=== PATIENT | male | born 1950 | race Caucasian/White ===

== ENCOUNTER 2018-05-27 23:02 | Emergency (ER) | payer BC, MEDICARE ==
[2018-05-28] MEDS ORDERED: PENICILLIN G BENZATHINE 1.2 MILLION UNIT/2 ML DISP.SYRIN IM ONE (04:51)
--- NOTE | 2018-05-28 04:53 | ER Document Report ---
ED General - General Chief Complaint: Sore Throat Stated Complaint: SORE THROAT,COUGH Time Seen by Provider: 05/28/18 04:42 Notes: Patient is a pleasant 67-year-old male who presents with complaints of sore throat. He has a history of strep pharyngitis says this feels similar. Actually started several days ago. For last few days has been taking some leftover amoxicillin. 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 He does not have any chest pain. He does have any other symptoms that he had when he had previous streptococcal pericarditis but he wants to try to avoid getting that again. No vomiting. Very mild minimal cough. No other complaints at this time. TRAVEL OUTSIDE OF THE [place] IN LAST 30 DAYS: No - Related Data Allergies/Adverse Reactions: hydrocodone bitartrate [From Vicodin] Adverse Reaction (Verified 07/31/14 17:06) Past Medical History - Social History Smoking Status: Never Smoker Chew tobacco use (# tins/day): No Frequency of alcohol use: None Drug Abuse: None Family History: Reviewed & Not Pertinent Patient has suicidal ideation: No Patient has homicidal ideation: No - Past Medical History Cardiac Medical History: Reports: Hx Hypercholesterolemia, Hx Hypertension Pulmonary Medical History: Reports: Hx Pneumonia Renal/ Medical History: Denies: Hx Peritoneal Dialysis Past Surgical History: Reports: Hx Abdominal Surgery - hernias, Hx Inguinal Hernia, Hx Umbilical Hernia - Immunizations Hx Diphtheria, Pertussis, Tetanus Vaccination: Yes Review of Systems - Review of Systems Notes: My Normal Review Basic REVIEW OF SYSTEMS: CONSTITUTIONAL : Fever EENT: Sore throat CARDIOVASCULAR: Denies chest pain. RESPIRATORY: mild cough. Denies shortness of breath, difficulty breathing, or wheezing. GASTROINTESTINAL: Denies abdominal pain. Denies nausea, vomiting, or diarrhea. MUSCULOSKELETAL: Denies neck or back pain or joint pain or swelling. SKIN: Denies rash or skin lesions. NEUROLOGICAL: Denies altered mental status or loss of consciousness. Denies headache. Denies weakness or paralysis or loss of use of either side. Denies problems with gait or speech. Denies sensory or motor loss. ALL OTHER SYSTEMS REVIEWED AND NEGATIVE. Physical Exam - Vital signs Vitals: Temp Pulse Resp BP Pulse Ox 98.7 F 98 20 150/87 H 92 05/27/18 23:11 05/27/18 23:11 05/27/18 23:11 05/27/18 23:11 05/27/18 23:11 - Notes Notes: General Appearance: Well nourished, alert, cooperative, no acute distress, mild obvious discomfort. Vitals: reviewed, See vital signs table. Head: no swelling or tenderness to the head Eyes: PERRL, EOMI, Conjuctiva clear Mouth: No decreasd moisture Throat: Small tonsillar enlargement and erythema in the pharynx. No exudates. No peritonsillar space swelling. Uvula is midline. Neck: Supple, no neck tenderness, No swelling Lungs: No wheezing, No rales, No rhonci, No accessory muscle use, good air exchange bilaterally. Heart: Normal rate, Regular rythm, No murmur, no rub Skin: warm, dry, appropriate color, no rash Neuro: speech clear, oriented x 3, normal affect, responds appropriately to questions. Course - Re-evaluation Re-evalutation: 05/28/18 08:23 Patient is well-appearing on exam he does have some erythema to the pharynx. His erythema is not overwhelming however he has been treating himself with amoxicillin for last 2 days which probably has improved some of the appearance of his pharynx. Strep swab was negative however rapid strep is or not 100% sensitive and it is likely that this could be negative also because her been treating himself somewhat some leftover amoxicillin at home. Patient has a history of recurrent strep pharyngitis and also has a history of streptococcal pericarditis I feel that is appropriate to treat him with IM penicillin. Patient is agreeable to this. Patient otherwise looks well and has no further concerns at this time. Is not any symptoms of pericarditis at this time. Patient encouraged to return to ER if he has chest pain, difficulty breathing, worsening throat pain, difficulty breathing, or difficulty swallowing. Patient agrees with plan and will be discharged home. Dictation of this chart was performed using voice recognition software; therefore, there may be some unintended grammatical errors. - Vital Signs Vital signs: Temp Pulse Resp BP Pulse Ox 98.2 F 95 20 153/88 H 93 05/28/18 05:02 05/28/18 05:02 05/28/18 05:02 05/28/18 05:02 05/28/18 05:02 Discharge - Discharge Clinical Impression: Pharyngitis Qualifiers: Pharyngitis/tonsillitis etiology: unspecified etiology Qualified Code(s): J02.9 - Acute pharyngitis, unspecified Condition: Good Disposition: HOME, SELF-CARE Additional Instructions: He did not have to take any further antibiotics after the shot of penicillin receiving tonight. Please follow-up with your doctor in 3-4 days for reevaluation. Please return to ER for fevers, any chest pain, worsening sore throat, throat swelling, or feel unwell. Sometimes people with strep throat will go on to develop something called a peritonsillar abscess. This will be swelling above your tonsil causing the uvula (hangy ball in the back of your throat) to shift to one side of your throat. If you develop these symptoms you must return to the ER immediately as this requires a different kind of treatment. Also please return to the ER immediately for difficulty breathing, difficulty swallowing, or if you have any further concerns that you are worsening. Referrals: DEEPTI PENA FNP [Primary Care Provider] - Follow up in 3-5 days
[2018-05-28 05:09] VITALS: BP 153/88
== END 2018-05-28 05:09 | disposition home or self-care (01) ==
LOC: ER 23:02
DX: J02.9 Acute pharyngitis, unspecified (principal); R05 Cough; R50.9 Fever, unspecified; I10 Essential (primary) hypertension; J35.1 Hypertrophy of tonsils
CPT/HCPCS: 99282; 87070; 87880; J0561

== ENCOUNTER → 2018-06-15 | Outpatient (CLI) | payer MEDICARE, OTHER ==
--- NOTE | 2018-06-15 10:28 | RADIOLOGY REPORT (SQ) ---
EXAM DESCRIPTION: CHEST PA/LATERAL COMPLETED DATE/TIME: 06/15/2018 9:51 am REASON FOR STUDY: COUGH FOR 2 WEEKS COMPARISON: 07/31/2014 EXAM PARAMETERS: NUMBER OF VIEWS: two views TECHNIQUE: Digital Frontal and Lateral radiographic views of the chest acquired. RADIATION DOSE: NA LIMITATIONS: none FINDINGS: LUNGS AND PLEURA: No focal consolidation, pleural effusion or pneumothorax. MEDIASTINUM AND HILAR STRUCTURES: Stable. No discrete mass. HEART AND VASCULAR STRUCTURES: Enlarged cardiomediastinal silhouette, stable. Evidence of failure. BONES: No acute findings. HARDWARE: None in the chest. OTHER: No other significant finding. IMPRESSION: No evidence of focal airspace disease or other acute cardiopulmonary process. TECHNICAL DOCUMENTATION: JOB ID: [id number] [employer]- All Rights Reserved Reading location - IP/workstation name: [email or web address]
== END ==
LOC: OD 09:34
PROVIDERS: ATTEND Internal Medicine
DX: R05 Cough (principal)
CPT/HCPCS: 71046

== ENCOUNTER 2019-04-19 05:43 | Emergency (ER) | payer MEDICARE, OTHER ==
[2019-04-19 08:23] LABS: ABSOLUTE BASOPHILS # (AUTO) 0.1 10^3/uL (0.0-0.2); ABSOLUTE EOSINOPHILS # (AUTO) 0.4 10^3/uL (0.0-0.6); ABSOLUTE LYMPHOCYTES (AUTO) 2.1 10^3/uL (0.5-4.7); ABSOLUTE MONOCYTES (AUTO) 0.7 10^3/uL (0.1-1.4); ABSOLUTE NEUT (AUTO) 5.1 10^3/uL (1.7-8.2); BASOPHILS % (AUTO) 1.2 % (0-2); EOSINOPHILS % (AUTO) 4.2 % (0-6); HEMATOCRIT 45.1 % (37.9-51.0); HEMOGLOBIN 15.1 g/dL (13.5-17.0); LYMPHOCYTES % (AUTO) 24.7 % (13-45); MEAN CORPUSCULAR HEMOGLOBIN 32.8 pg (27.0-33.4); MEAN CORPUSCULAR HGB CONC 33.6 g/dL (32.0-36.0); MEAN CORPUSCULAR VOLUME 98 fl (80-97); MONOCYTES % (AUTO) 8.6 % (3-13); PLATELET COUNT 276 10^3/uL (150-450); RED BLOOD COUNT 4.62 10^6/uL (4.35-5.55); RED CELL DISTRIBUTION WIDTH 13.1 % (11.5-14.0); SEGMENTED NEUTROPHILS % (AUTO) 61.3 % (42-78); TOTAL CELLS COUNTED % (AUTO) 100 %; WHITE BLOOD COUNT 8.4 10^3/uL (4.0-10.5)
--- NOTE | 2019-04-19 08:32 | ER Document Report ---
ED General - General Chief Complaint: High Blood Pressure Stated Complaint: BLOOD PRESSURE ISSUES Time Seen by Provider: 04/19/19 08:11 Primary Care Provider: KACY REYNOLDS MD [Primary Care Provider] - Follow up as needed TRAVEL OUTSIDE OF THE [place] IN LAST 30 DAYS: No - HPI Notes: Patient is a 68-year-old male with a history of hypertension who had relatively unremarkable cardiac cath performed a month ago (aside from 20% blockage) who presents complaining of having high blood pressure over the past month that has reached triple over triple. He had some general weakness and feeling of light- headedness this morning. Patient states that he was started on a beta-xavier around that time and his dose was doubled because of his continued elevated blood pressure. Patient states that he feels a little weak when he BP is elevated, but currently is feeling much better. He is able to eat and drink without difficulty. He is urinating normally and having normal bowel movements. 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 Denies any headache, fever, neck pain, changes in vision/speech/mentation/hearing, URI, sore throat, chest pain, palpitations, syncope, cough, shortness of breath, wheeze, dyspnea, abdominal pain, nausea/vomiting/diarrhea, urinary retention, dysuria, hematuria, loss of control of bowel or bladder, numbness/tingling, saddle anesthesia, muscle paralysis/weakness, or rash. - Related Data Allergies/Adverse Reactions: hydrocodone bitartrate [From Vicodin] Adverse Reaction (Verified 04/19/19 09:13) Home Medications: KCL 20 mEq qday. [id number] mg bid. losartan 100 mg qday. [id number] mg q evening. tamsulosin 0.4 mg qday. coreg 12.5 mg bid. lasix 40 mg qday Past Medical History - Social History Smoking Status: Never Smoker Family History: Reviewed & Not Pertinent Patient has suicidal ideation: No Patient has homicidal ideation: No - Past Medical History Cardiac Medical History: Reports: Hx Hypercholesterolemia, Hx Hypertension Pulmonary Medical History: Reports: Hx Pneumonia Renal/ Medical History: Denies: Hx Peritoneal Dialysis Past Surgical History: Reports: Hx Abdominal Surgery - hernias, Hx Inguinal Hernia, Hx Umbilical Hernia - Immunizations Hx Diphtheria, Pertussis, Tetanus Vaccination: Yes Review of Systems - Review of Systems -: Yes All other systems reviewed and negative Physical Exam - Vital signs Vitals: Temp Pulse Resp BP Pulse Ox 98.2 F 62 16 198/97 H 94 04/19/19 05:56 04/19/19 05:56 04/19/19 05:56 04/19/19 05:56 04/19/19 05:56 - Notes Notes: PHYSICAL EXAMINATION: GENERAL: Well-appearing, well-nourished and in no acute distress. HEAD: Atraumatic, normocephalic. EYES: Pupils equal round and reactive to light, extraocular movements intact, sclera anicteric, conjunctiva are normal. ENT: Nares patent and without discharge. oropharynx clear without exudates. No tonsilar hypertrophy or erythema. Moist mucous membranes. NECK: Normal range of motion, supple without lymphadenopathy LUNGS: Breath sounds clear to auscultation bilaterally and equal. No wheezes rales or rhonchi. HEART: Regular rate and rhythm without murmurs, rubs, gallops. ABDOMEN: Soft, nontender, nondistended abdomen. No guarding, no rebound. Normal bowel sounds present. No CVA tenderness bilaterally. Musculoskeletal: FROM to passive/active. Strength 5+/5. [place] neg. No asymmetry to LE's. Extremities: trace pitting edema b/l LE's. Peripheral pulses 2+. Capillary refill less than 3 seconds. NEUROLOGICAL: Normal speech, normal gait. Cranial nerves grossly intact PSYCH: Normal mood, normal affect. SKIN: Warm, Dry, normal turgor, no rashes or lesions noted. Course - Re-evaluation Re-evalutation: 04/19/19 09:54 Patient is an afebrile, well-hydrated 68 year-old male who presents to the ED with resolved light headedness and elevated blood pressure. Vitals are acceptable without any significant tachycardia, tachypnea, or hypoxia. PE is otherwise unremarkable. Patient is nontoxic-appearing and is tolerating p.o. without any difficulties. Pt is currently asymptomatic. CBC, CMP, EKG/cardiac enzymes are all unremarkable for any acute pathology. Pt had reported no blockage on stress test 1mo ago. EKG did show very mild ST depression in V1-V3. Patient does not have any chest pain, dyspnea, or shortness of breath. I did speak with Cardio, Dr. Jin, who states very low risk for any significant cardiac event at this time. He may be discharged, the minimal depression could have been due to elevated blood pressure but does not need to be admitted. Patient's presentation and symptomatology creates low suspicion for ACS, PE, pneumothorax, pericarditis, dissection, respiratory compromise, severe dehydration, sepsis, meningitis, or other systemic emergent condition at this time. Patient is aware that his condition can change from initial presentation and he needs to monitor symptoms closely and seek medical attention for any acute changes. Pt is feeling better and would like to go home. Recommend conservative measures for symptoms. Pt has an appointment with his PCM in 1 hour for his elevated blood pressure. Consider consult with Cardiology. Return to the ED with any worsening/concerning symptoms otherwise as reviewed in discharge. Patient is in agreement. - Vital Signs Vital signs: Temp Pulse Resp BP Pulse Ox 98 F 62 18 165/94 H 96 04/19/19 06:39 04/19/19 05:56 04/19/19 09:01 04/19/19 09:01 04/19/19 09:01 - Laboratory Result Diagrams: 04/19/19 06:18 04/19/19 06:18 Laboratory results interpreted by me: 04/19/19 04/19/19 06:18 06:18 MCV 98 H Glucose 117 H - EKG Interpretation by Vt EKG shows normal: Sinus rhythm. abnormal: ST-T Waves - slight depressions V1- V3. Rate: Normal When compared to previous EKG there are: Changes noted - see above Discharge - Discharge Clinical Impression: Elevated blood pressure reading Condition: Stable Disposition: HOME, SELF-CARE Additional Instructions: Maintain adequate fluid and food intake Take home medications as directed Low sodium/fat diet Weight control Monitor blood pressure daily and keep a log Monitor symptoms for any acute changes Keep appointment with family doctor at 11 AM today Consider a follow-up with cardiology Return to the ED with any worsening symptoms and/or development of fever, headache, chest pain, palpitations, syncope, shortness of breath, trouble breathing, abdominal pain, n/v/d, blood in stool/urine, loss of control of bowel/bladder, urinary retention, muscle weakness/paralysis, numbness/tingling, or other worsening symptoms that are concerning to you. Forms: Elevated Blood Pressure Referrals: KACY REYNOLDS MD [Primary Care Provider] - Follow up as needed
[2019-04-19 08:55] LABS: ALBUMIN 3.9 g/dL (3.5-5.0); ALKALINE PHOSPHATASE 97 U/L (38-126); ANION GAP 8 (5-19); ASPARTATE AMINO TRANSFERASE 27 U/L (17-59); BILIRUBIN,DIRECT 0.1 mg/dL (0.0-0.4); BILIRUBIN,TOTAL 0.9 mg/dL (0.2-1.3); BLOOD UREA NITROGEN 12 mg/dL (7-20); CALCIUM 9.2 mg/dL (8.4-10.2); CARBON DIOXIDE 28 mmol/L (22-30); CHLORIDE 105 mmol/L (98-107); GLUCOSE 117 mg/dL (75-110); POTASSIUM 3.9 mmol/L (3.6-5.0); TOTAL PROTEIN 7.5 g/dL (6.3-8.2)
[2019-04-19 09:27] LABS: CREATINE KINASE MB 0.32 ng/mL (<4.55)
[2019-04-19 09:29] LABS: TROPONIN I < 0.012 ng/mL
[2019-04-19 10:12] VITALS: BP 168/109
--- NOTE | 2019-04-19 23:37 | EKG REPORT ---
SEVERITY:- ABNORMAL ECG - SINUS RHYTHM NONSPECIFIC T ABNORMALITIES, ANTERIOR LEADS : Confirmed by: Juan Alberto Lofton 19-Apr-2019 23:36:39
== END 2019-04-19 10:13 | disposition home or self-care (01) ==
LOC: ER 05:43
DX: I10 Essential (primary) hypertension (principal); R53.1 Weakness; R42 Dizziness and giddiness; R94.31 Abnormal electrocardiogram [ECG] [EKG]; Z79.899 Other long term (current) drug therapy
CPT/HCPCS: 36415; 80053; 82550; 82553; 84484; 85025; 93005; 93010; 99283